=== PATIENT | female | born 1955 | race African-American/Black ===

== ENCOUNTER 2022-10-25 14:53 | Inpatient (IN) ==
[2022-10-25 15:35] LABS: Basophils % 0.5 % (0.0-0.8); Eosinophils # 0.1 10*3/uL (0.0-0.87); Eosinophils % 1.9 % (0.00-10.9); Hematocrit 19.7 VOL% (35.7-47.0); Immature Granulocytes % 0.5 %; Immature Granulocytes Absolute 0.02 #; Lymphocytes # 1.2 10*3/uL (1.4-4.0); Mean Corpuscular HGB Conc 27.9 GM/DL (32-36); Mean Corpuscular Volume 69.9 FL (87-102); Mean Platelet Volume 8.8 FL (9.6-12.0); Monocytes # 0.4 10*3/uL (0.11-0.8); Monocytes % 12.1 % (1.7-12.7); Platelet Count 531 T/CUMM (130-400); Red Blood Count 2.82 MC/CUMM (3.8-5.5); Red Cell Distribution Width 18.2 % (9.3-17.3); White Blood Count 3.6 T/CUMM (4-12)
[2022-10-25 15:39] LABS: Hemoglobin 5.5 GM/DL (12.0-16.0)
[2022-10-25 15:59] LABS: Alanine Aminotransferase 29 U/L (13-56); Albumin 3.5 G/DL (3.4-5.0); Alkaline Phosphatase 202 U/L (45-117); Aspartate Amino Transferase 23 U/L (0-37); Bilirubin,Total < 0.39 MG/DL (0.20-1.00); Blood Urea Nitrogen 10 MG/DL (7-18); Carbon Dioxide 29 MMOL/L (21-32); Chloride 107 MMOL/L (98-107); Glucose 89 MG/DL (74-106); Osmolality,Calculated 276.4 MOS/KG (273-304); Potassium 4.1 MMOL/L (3.5-5.1); Sodium 140 MMOL/L (136-145); Total Protein 7.8 G/DL (6.4-8.2)
[2022-10-25] MEDS ORDERED: ACETAMINOPHEN 325 MG TABLET PO PRN (17:02)
[2022-10-25] MEDS ORDERED: ONDANSETRON 4 MG/2 ML VIAL IV PRN (17:02)
[2022-10-25] MEDS ORDERED: SODIUM CHLORIDE 0.9% 1,000 ML IV PRN (17:06)
[2022-10-25 17:20] LABS: Alanine Aminotransferase 29 U/L (13-56); Albumin 3.3 G/DL (3.4-5.0); Alkaline Phosphatase 191 U/L (45-117); Aspartate Amino Transferase 26 U/L (0-37); Bilirubin,Total < 0.39 MG/DL (0.20-1.00); Blood Urea Nitrogen 9 MG/DL (7-18); Calcium 8.8 MG/DL (8.5-10.1); Carbon Dioxide 27 MMOL/L (21-32); Chloride 107 MMOL/L (98-107); Glucose 83 MG/DL (74-106); Osmolality,Calculated 274.5 MOS/KG (273-304); Potassium 3.8 MMOL/L (3.5-5.1); Sodium 139 MMOL/L (136-145); Total Protein 7.5 G/DL (6.4-8.2)
[2022-10-25 17:21] LABS: INR 2.1; PT Patient Result 22.4 SECS (10.1-12.1); Partial Thromboplastin Time 32.4 SECS (23.7-32.9)
[2022-10-25 17:34] LABS: Folate 7.58 NG/ML (5.38-24.0); Vitamin B12 520 PG/ML (211-911)
[2022-10-25] MEDS ORDERED: FUROSEMIDE 40 MG/4 ML VIAL IV ONE (20:50)
[2022-10-25] MEDS ORDERED: PANTOPRAZOLE 40 MG TABLET PO SCH (21:00)
[2022-10-25] MEDS: carvediloL 12.5 MG TABLET PO SCH (21:39)
[2022-10-25] MEDS: ZALEPLON 5 MG CAPSULE PO SCH (21:47)
[2022-10-26 02:40] LABS: Basophils % 0.4 % (0.0-0.8); Eosinophils # 0.1 10*3/uL (0.0-0.87); Hematocrit 26.7 VOL% (35.7-47.0); Hemoglobin 8.2 GM/DL (12.0-16.0); Immature Granulocytes % 0.2 %; Immature Granulocytes Absolute 0.02 #; Lymphocytes # 0.7 10*3/uL (1.4-4.0); Lymphocytes % 7.8 % (21.3-54.2); Mean Corpuscular HGB Conc 30.7 GM/DL (32-36); Mean Platelet Volume 9.1 FL (9.6-12.0); Monocytes # 0.5 10*3/uL (0.11-0.8); Monocytes % 5.5 % (1.7-12.7); Neutrophils % 85.1 % (38.7-73.9); Platelet Count 469 T/CUMM (130-400); Red Blood Count 3.66 MC/CUMM (3.8-5.5); Red Cell Distribution Width 20.3 % (9.3-17.3); White Blood Count 8.4 T/CUMM (4-12)
[2022-10-26 02:51] LABS: INR 1.9
[2022-10-26 03:05] LABS: Albumin 3.4 G/DL (3.4-5.0); Bilirubin,Total 0.4 MG/DL (0.20-1.00); Calcium 8.8 MG/DL (8.5-10.1); Osmolality,Calculated 276.5 MOS/KG (273-304); Potassium 3.5 MMOL/L (3.5-5.1); Total Protein 7.7 G/DL (6.4-8.2)
[2022-10-26 03:43] LABS: Sedimentation Rate-Westergren 93 MM/HR (0-30)
[2022-10-26] MEDS: THYROID 15 MG PO SCH (05:33)
[2022-10-26] MEDS: CHOLECALCIFEROL 1,000 UNIT TABLET PO SCH (08:44)
[2022-10-26] MEDS: PANTOPRAZOLE 40 MG TABLET PO SCH (08:44)
[2022-10-26] MEDS: SPIRONOLACTONE 25 MG TABLET PO SCH (08:44)
[2022-10-26] MEDS: LOSARTAN 50 MG TABLET PO SCH (08:45)
[2022-10-26] MEDS: carvediloL 12.5 MG TABLET PO SCH ×2 (08:45→22:16)
[2022-10-26] MEDS ORDERED: SODIUM CHLORIDE 0.9% 1,000 ML IV PRN (08:49)
[2022-10-26] MEDS ORDERED: NU IRON PO SCH (09:00)
[2022-10-26] MEDS: ZALEPLON 5 MG CAPSULE PO SCH (22:16)
[2022-10-27 05:37] LABS: Basophils % 0.4 % (0.0-0.8); Eosinophils # 0.2 10*3/uL (0.0-0.87); Eosinophils % 3.7 % (0.00-10.9); Hematocrit 27.7 VOL% (35.7-47.0); Hemoglobin 8.1 GM/DL (12.0-16.0); Immature Granulocytes % 0.4 %; Immature Granulocytes Absolute 0.02 #; Lymphocytes # 1.3 10*3/uL (1.4-4.0); Mean Corpuscular HGB Conc 29.2 GM/DL (32-36); Mean Corpuscular Volume 73.7 FL (87-102); Mean Platelet Volume 9.1 FL (9.6-12.0); Monocytes # 0.9 10*3/uL (0.11-0.8); Monocytes % 18.2 % (1.7-12.7); Neutrophils % 52.3 % (38.7-73.9); Platelet Count 482 T/CUMM (130-400); Red Blood Count 3.76 MC/CUMM (3.8-5.5); Red Cell Distribution Width 21.2 % (9.3-17.3); White Blood Count 5.2 T/CUMM (4-12)
[2022-10-27 05:45] LABS: INR 1.4; PT Patient Result 15.1 SECS (10.1-12.1)
[2022-10-27 05:58] LABS: Calcium 9.3 MG/DL (8.5-10.1); Osmolality,Calculated 278.3 MOS/KG (273-304); Potassium 3.6 MMOL/L (3.5-5.1)
[2022-10-27 06:01] LABS: Hypochromia Slight; Lymphocytes 28 % (20-55); Microcytosis Slight; Platelet Estimate Adequate; Total Cells Counted 100
[2022-10-27] MEDS: LACTATED RINGERS 1,000 ML IV SCH (06:45)
[2022-10-27] MEDS: THYROID 15 MG PO SCH (07:49)
[2022-10-27] MEDS: LOSARTAN 50 MG TABLET PO SCH (08:21)
[2022-10-27] MEDS: carvediloL 12.5 MG TABLET PO SCH ×2 (08:21→22:35)
[2022-10-27] MEDS: SPIRONOLACTONE 25 MG TABLET PO SCH (08:21)
[2022-10-27] MEDS: PANTOPRAZOLE 40 MG TABLET PO SCH (08:22)
[2022-10-27] MEDS: CHOLECALCIFEROL 1,000 UNIT TABLET PO SCH (08:22)
[2022-10-27] MEDS ORDERED: propofoL 200 MG/20 ML VIAL IV ONE ×3 (08:55→09:13)
[2022-10-27] MEDS ORDERED: LIDOCAINE 2% 5 ML VIAL ONE (08:55)
[2022-10-27] MEDS ORDERED: EPINEPHrine 1 MG/ML VIAL ONE ×2 (09:06→09:13)
[2022-10-27] MEDS: ZALEPLON 5 MG CAPSULE PO SCH (22:35)
[2022-10-28 05:25] LABS: Basophils % 0.4 % (0.0-0.8); Eosinophils # 0.1 10*3/uL (0.0-0.87); Eosinophils % 2.2 % (0.00-10.9); Hematocrit 26.7 VOL% (35.7-47.0); Hemoglobin 7.9 GM/DL (12.0-16.0); Immature Granulocytes % 0.4 %; Immature Granulocytes Absolute 0.02 #; Lymphocytes # 1.2 10*3/uL (1.4-4.0); Lymphocytes % 21.5 % (21.3-54.2); Mean Corpuscular HGB Conc 29.6 GM/DL (32-36); Mean Platelet Volume 9.8 FL (9.6-12.0); Monocytes # 0.7 10*3/uL (0.11-0.8); Monocytes % 12.1 % (1.7-12.7); Neutrophils % 63.4 % (38.7-73.9); Platelet Count 377 T/CUMM (130-400); Red Blood Count 3.56 MC/CUMM (3.8-5.5); Red Cell Distribution Width 22.1 % (9.3-17.3); White Blood Count 5.5 T/CUMM (4-12)
[2022-10-28] MEDS: THYROID 15 MG PO SCH (05:43)
[2022-10-28 05:47] LABS: Anisocytosis 1+; Hypochromia 1+; Microcytosis 1+; Polychromasia Slight; Target Cells Slight
[2022-10-28 05:50] LABS: Calcium 9.1 MG/DL (8.5-10.1); Osmolality,Calculated 271.7 MOS/KG (273-304); Potassium 4.6 MMOL/L (3.5-5.1)
[2022-10-28] MEDS ORDERED: IRON SUCROSE 300 MG in SODIUM CHLORIDE 0.9% 100 ML IV ONE (06:44)
[2022-10-28] MEDS: LACTATED RINGERS 1,000 ML IV SCH (08:29)
[2022-10-28] MEDS: LOSARTAN 50 MG TABLET PO SCH (08:30)
[2022-10-28] MEDS ORDERED: THYROID 60 MG TABLET PO SCH (09:00)
[2022-10-28] MEDS ORDERED: FERRIC GLUCONATE COMPLEX 125 MG in SODIUM CHLORIDE 0.9% 100 ML IV SCH (09:00)
[2022-10-28] MEDS: carvediloL 12.5 MG TABLET PO SCH (09:20)
[2022-10-28] MEDS: PANTOPRAZOLE 40 MG TABLET PO SCH (09:20)
[2022-10-28] MEDS: CHOLECALCIFEROL 1,000 UNIT TABLET PO SCH (09:20)
[2022-10-28] MEDS: SPIRONOLACTONE 25 MG TABLET PO SCH (09:20)
[2022-10-28 12:01] VITALS: BP 112/53
[2022-10-31 23:41] LABS: H pylori Specimen source STOOL; Helicobacter pylori Result Not Detected
== END 2022-10-28 14:00 | disposition home or self-care (01) | DRG 378 ==
LOC: SUATTDRO → N.ED 14:53 → N.EDINP 17:02 → N.2E 18:24
PROVIDERS: ADMIT Internal Medicine; ATTEND Hospitalist